=== PATIENT | female | born 1985 | race Caucasian/White ===

== ENCOUNTER 2017-12-13 01:31 | Inpatient (IN) | payer OTHER ==
[~2017-12-13] VITALS: Ht 165.1 cm; Wt 108.9 kg
[2017-12-13] MEDS ORDERED: METHYLERGONOVINE 0.2 MG/ML AMP IM PRN (02:20)
[2017-12-13] MEDS ORDERED: OXYTOCIN 20 UNITS in LACTATED RINGERS 1,000 ML IV SCH (02:20)
[2017-12-13] MEDS ORDERED: NALBUPHINE HYDROCHLORIDE 10 MG/ML VIAL IVP PRN (02:20)
[2017-12-13] MEDS ORDERED: MISOPROSTOL 25 MCG TAB VG SCH (02:20)
[2017-12-13] MEDS ORDERED: OXYTOCIN 10 UNITS/ML VIAL IM SCH (02:20)
[2017-12-13] MEDS ORDERED: PROMETHAZINE 25 MG/ML VIAL IVP PRN (02:20)
[2017-12-13] MEDS ORDERED: CARBOPROST 250 MCG/ML AMP IM PRN (02:20)
[2017-12-13 02:56] LABS: APPEARANCE,URINE CLEAR (CLEAR); BILIRUBIN,URINE NEGATIVE (NEGATIVE); BLOOD, URINE NEGATIVE (NEGATIVE); COLOR,URINE YELLOW (YELLOW); LEUKOCYTE ESTERASE ,URINE 1+ (NEGATIVE); NITRITE, URINE NEGATIVE (NEGATIVE); PH,URINE 6.5 (5.0-9.0); UGLUCOSE NEGATIVE (NEGATIVE)
[2017-12-13 03:00] LABS: BASOPHILS # (AUTO) 0.1 K/uL (0.00-0.22); BASOPHILS % (AUTO) 1.4 % (0.0-2.0); EOSINOPHILS # (AUTO) 0.1 K/uL (0-0.4); HEMATOCRIT 38.3 % (36-48); HEMOGLOBIN 12.8 g/dL (12.0-16.0); LYMPHOCYTES # (AUTO) 2.3 K/uL (2.5-16.5); MEAN CORPUSCULAR HEMOGLOBIN 29 pg (27-31); MEAN CORPUSCULAR HGB CONC 33 g/dL (33-37); MEAN CORPUSCULAR VOLUME 86 fL (80-94); MONOCYTES # (AUTO) 0.6 K/uL (0.8-1.0); NEUTROPHILS # (AUTO) 6.9 K/uL (1.8-7.7); NEUTROPHILS % (AUTO) 68.6 % (42.2-75.2); PLATELET COUNT (AUTO) 167 K/uL (140-450); RED BLOOD CELL COUNT(AUTO) 4.44 MIL/uL (4.20-5.40); RED CELL DISTRIBUTION WIDTH 12.7 % (11.6-13.7)
[2017-12-13] MEDS: LACTATED RINGERS 1,000 ML IV SCH ×3 (03:05→11:40)
[2017-12-13 03:20] LABS: ALBUMIN 2.5 g/dL (3.4-5.0); CARBON DIOXIDE 24.6 mmol/L (21-32); CREATININE 0.6 mg/dL (0.6-1.3); POTASSIUM 3.6 mmol/L (3.5-5.1); TOTAL BILIRUBIN 0.3 mg/dL (0.0-1.0)
[2017-12-13] MEDS ORDERED: MISOPROSTOL 25 MCG TAB ONE (03:22)
[2017-12-13] MEDS ORDERED: PREN-546 PO (03:53)
[2017-12-13 04:43] LABS: RBC,URINE 0-5 (RARE) /HPF (0-5); WBC,URINE 0-5 (RARE) /HPF (0-5)
--- NOTE | 2017-12-13 10:54 | NUR ---
PATIENT HAS BEEN SCREENED AND CATEGORIZED LOW NUTRITION RISK. PATIENT WILL BE SEEN WITHIN 7 DAYS OF ADMISSION. 12/19/[address]
[2017-12-13] MEDS ORDERED: BUPIVACAINE 0.125%/NS PREMIX 250 ML EPI SCH (11:00)
[2017-12-13] MEDS ORDERED: OXYTOCIN 10 UNITS/ML VIAL ONE (14:39)
[2017-12-13] MEDS ORDERED: METHYLERGONOVINE 0.2 MG TAB PO PRN (17:30)
[2017-12-13] MEDS ORDERED: TEMAZEPAM 15 MG CAP PO PRN (17:30)
[2017-12-13] MEDS ORDERED: SODIUM PHOSPHATE 118 ML ENEM RC PRN (17:30)
[2017-12-13] MEDS ORDERED: MEASLES, MUMPS, AND RUBELLA 1 VIAL SQVAC PRN (17:30)
[2017-12-13] MEDS ORDERED: OXYTOCIN 10 UNITS/ML VIAL IM PRN (17:30)
[2017-12-13] MEDS ORDERED: HYDROcodone/APAP 5/325 MG 1 TAB TAB PO PRN (17:30)
[2017-12-13] MEDS ORDERED: BENZOCAINE/MENTHOL 20%-0.5% 60 GM CAN TP PRN (17:30)
[2017-12-13] MEDS ORDERED: oxyCODONE/APAP 5/325 MG 1 TAB TAB PO PRN (17:30)
[2017-12-13] MEDS ORDERED: ACETAMINOPHEN 325 MG TAB PO PRN (17:50)
[2017-12-13] MEDS ORDERED: ACETAMINOPHEN 325 MG TAB ONE (17:52)
[2017-12-13] MEDS ORDERED: DOCUSATE SOD/SENNA 50/8.6 MG 1 TAB PO SCH (21:00)
[2017-12-13] MEDS: CALCIUM POLYCARBOPHIL 625 MG TAB PO SCH (21:45)
[2017-12-14] MEDS ORDERED: INFLUENZA VIRUS VACCINE QUAD 0.5 ML SYR IMVAC SCH (03:00)
[2017-12-14 07:07] LABS: HEMATOCRIT 37.1 % (36-48); HEMOGLOBIN 12.3 g/dL (12.0-16.0)
[2017-12-14] MEDS: CALCIUM POLYCARBOPHIL 625 MG TAB PO SCH ×4 (08:46→21:53)
[2017-12-14] MEDS ORDERED: IBUP-2213 PO (18:08)
== END 2017-12-14 23:25 | disposition home or self-care (01) | DRG 560 ==
LOC: MLD 01:31 → MFCC 21:21
PROVIDERS: ADMIT Obstetrics & Gynecology; ATTEND Obstetrics & Gynecology
PROC: 3E033VJ Introduction of Other Hormone into Peripheral Vein, Percutaneous Approach (ICD-10-PCS; principal; 2017-12-13)
PROC: 10E0XZZ Delivery of Products of Conception, External Approach (ICD-10-PCS; 2017-12-13)
PROC: 3E0R3BZ Introduction of Anesthetic Agent into Spinal Canal, Percutaneous Approach (ICD-10-PCS; 2017-12-13)
PROC: 00HU33Z Insertion of Infusion Device into Spinal Canal, Percutaneous Approach (ICD-10-PCS; 2017-12-13)
PROC: 3E0P7VZ Introduction of Hormone into Female Reproductive, Via Natural or Artificial Opening (ICD-10-PCS; 2017-12-13)
PROC: 3E0234Z Introduction of Serum, Toxoid and Vaccine into Muscle, Percutaneous Approach (ICD-10-PCS; 2017-12-14)
PROC: 3E0234Z Introduction of Serum, Toxoid and Vaccine into Muscle, Percutaneous Approach (ICD-10-PCS; 2017-12-14)
DX: O99.214 Obesity complicating childbirth (principal); E66.9 Obesity, unspecified; Z68.25 Body mass index [BMI] 25.0-25.9, adult; Z3A.38 38 weeks gestation of pregnancy; Z37.0 Single live birth; Z23 Encounter for immunization
CPT/HCPCS: 36415; 51702; 59200; 59409; 80053; 81001; 85018; 85025; 86592; 86762; 86886; 86900; 86901; 87086; 87340; 90658; 90715; J2590; J3490; J7120

== ENCOUNTER 2017-12-17 14:11 | Emergency (ER) | payer OTHER ==
[~2017-12-17] VITALS: Ht 165.1 cm; Wt 104.9 kg
[~2017-12-17 14:11] MED LIST: PREN-546 PO
[2017-12-17 15:34] VITALS: BP 122/71
--- NOTE | 2017-12-17 15:41 | NUR ---
PT WHEEL CHAIR ASSISTED TO THE LOBBY PER DR BLANCO, AWARE OF DX
[2017-12-17 16:34] LABS: PROTHROMBIN TIME 9.2 secs (10.8-13.4)
[2017-12-17 17:38] LABS: BASOPHILS # (AUTO) 0.1 K/uL (0.00-0.22); BASOPHILS % (AUTO) 0.9 % (0.0-2.0); EOSINOPHILS # (AUTO) 0.3 K/uL (0-0.4); EOSINOPHILS % (AUTO) 2.7 % (0.0-4.0); HEMATOCRIT 39.7 % (36-48); HEMOGLOBIN 13.2 g/dL (12.0-16.0); LYMPHOCYTES # (AUTO) 1.7 K/uL (2.5-16.5); MEAN CORPUSCULAR HEMOGLOBIN 29 pg (27-31); MEAN CORPUSCULAR HGB CONC 33 g/dL (33-37); MEAN CORPUSCULAR VOLUME 88.3 fL (80-94); MONOCYTES # (AUTO) 0.6 K/uL (0.8-1.0); MONOCYTES % (AUTO) 5.4 % (1.7-9.3); NEUTROPHILS # (AUTO) 9.2 K/uL (1.8-7.7); PLATELET COUNT (AUTO) 201 K/uL (140-450); WHITE BLOOD COUNT (AUTO) 11.9 K/uL (4.8-10.8)
--- NOTE | 2017-12-17 18:25 | NUR ---
PATIENT AMB. TO BED #10 WITH
--- NOTE | 2017-12-17 19:14 | NUR ---
32Y F BIB FAMILY C/O VAGINAL BLEED, WITH CLOTS, ABD PAIN SINCE SUNDAY; JUST HAD A VAG DELIVERY LAST SUNDAY; TAKING IBUPROFEN HX; DENIES RX; DENIES
--- NOTE | 2017-12-17 19:39 | NUR ---
Dr. Ledesma evaluating patient.
--- NOTE | 2017-12-17 20:17 | NUR ---
PT TAKEN TO CT
--- NOTE | 2017-12-17 20:24 | NUR ---
PT RETURN FROM CT
[2017-12-17 22:36] LABS: APPEARANCE,URINE CLOUDY (CLEAR); BILIRUBIN,URINE NEGATIVE (NEGATIVE); BLOOD, URINE 3+ (NEGATIVE); COLOR,URINE RED (YELLOW); LEUKOCYTE ESTERASE ,URINE 3+ (NEGATIVE); NITRITE, URINE NEGATIVE (NEGATIVE); UGLUCOSE NEGATIVE (NEGATIVE)
[2017-12-17] MEDS ORDERED: IBUPROFEN 600 MG TAB PO ONE (22:40)
--- NOTE | 2017-12-17 22:58 | NUR ---
Patient discharged with v/s stable. Written and verbal after care instructions given and explained. Patient alert, oriented and verbalized understanding of instructions. Ambulatory with steady gait. All questions addressed prior to discharge. ID band removed. Patient advised to follow up with PMD. Rx of NAPROSYN 500 MG, MIRALAX POWER given. Patient educated on indication of medication including possible reaction and side effects. Opportunity to ask questions provided and answered.
[2017-12-17 22:59] VITALS: BP 122/71
[2017-12-18 00:28] LABS: RBC,URINE TOO NUMEROUS TO COUN /HPF (0-5); WBC,URINE TOO MANY TO COUNT /HPF (0-5)
[2017-12-18 03:32] LABS: CARBON DIOXIDE 27.3 mmol/L (21-32); POTASSIUM 4.3 mmol/L (3.5-5.1)
[2017-12-18 03:33] LABS: CREATININE 0.6 mg/dL (0.6-1.3); TOTAL BILIRUBIN 0.2 mg/dL (0.0-1.0)
[2017-12-18 03:34] LABS: ALBUMIN 2.8 g/dL (3.4-5.0)
[2017-12-20 06:39] LABS: CHLAMYDIA TRACHOMATIS AMP DNA Negative (Negative)
== END 2017-12-17 22:58 | disposition home or self-care (01) ==
LOC: MED 14:11
DX: O72.1 Other immediate postpartum hemorrhage (principal); O99.63 Diseases of the digestive system complicating the puerperium; K59.00 Constipation, unspecified; Z79.899 Other long term (current) drug therapy; Z98.890 Other specified postprocedural states
CPT/HCPCS: 36415; 76830; 80053; 81001; 81025; 83690; 85025; 85610; 85730; 87086; 87491; 99285